=== PATIENT | female | born 1990 | race Caucasian/White ===

== ENCOUNTER 2025-09-23 01:50 | Emergency (ER) | payer BC ==
[~2025-09-23] VITALS: Ht 162.6 cm; Wt 61.0 kg
[2025-09-23 01:55] VITALS: O2SAT 97
[2025-09-23 01:59] VITALS: BP 123/75; PULSE 100; RESP 18; TEMP 36.7; O2SAT 100
[2025-09-23 05:16] LABS: CLARITY URINE CLEAR (CLEAR); COLOR URINE YELLOW (YELLOW); PH URINE 6.5 (4.5-8.0); SPECIFIC GRAVITY URINE 1.003 (1.005-1.030)
[2025-09-23 05:17] LABS: GLUCOSE URINE NEGATIVE (NEGATIVE); KETONES URINE NEGATIVE (NEGATIVE); LEUKOCYTE ESTERASE URINE NEGATIVE (NEGATIVE); NITRITE URINE NEGATIVE (NEGATIVE); OCCULT BLOOD URINE NEGATIVE (NEGATIVE); PROTEIN URINE NEGATIVE (NEGATIVE); UROBILINOGEN URINE 0.2 E.U./dL (0.2-1.0)
[2025-09-23 05:18] LABS: UCG KIT EXPIRATION DATE 04/08/2027; UCG KIT LOT# 994099; UCG SCREEN NEGATIVE
[2025-09-23 05:39] LABS: BASOPHILS % 0.9 % (0.0-2.0); EOSINOPHILS % 2.0 % (0.0-5.0); HEMATOCRIT. 39.1 % (36.0-48.0); HEMOGLOBIN. 13.3 g/dL (12.0-16.0); LYMPHOCYTES % 32.6 % (20.0-50.0); MEAN PLATELET VOLUME 9.0 fl (7.4-10.4); MONOCYTES % 8.3 % (2.0-8.0); NEUTROPHILS % 56.2 % (40.0-76.0); PLATELET 319 x1000/uL (130-400); RED BLOOD CELL COUNT 4.35 mill/uL (4.2-5.4); RED CELL DISTRIBUTION WIDTH 12.3 % (11.6-14.6)
[2025-09-23 06:03] LABS: HCG SCREEN NEGATIVE
[2025-09-23 06:04] LABS: CREATININE 0.8 mg/dL (0.6-1.0); UREA NITROGEN BLOOD 7 mg/dL (9-23)
[2025-09-23 06:05] LABS: TROPONIN I HIGH SENSITIVITY < 4 ng/L (3.0-34)
[2025-09-23 06:34] LABS: ASPARTATE AMINOTRANSFERASE 20 IU/L (<34); BILIRUBIN DIRECT 0.2 mg/dL (<=3.0); BILIRUBIN TOTAL 0.8 mg/dL (0.1-1.0); PROTEIN TOTAL 6.9 g/dL (6.0-8.3)
== END 2025-09-23 07:12 | disposition left against medical advice (07) ==
LOC: ER 01:50
DX: R07.9 Chest pain, unspecified (principal); R10.12 Left upper quadrant pain; J45.909 Unspecified asthma, uncomplicated; Z87.442 Personal history of urinary calculi
CPT/HCPCS: 36415; 71045; 74176; 80048; 80076; 81003; 81025; 84484; 84703; 85025; 85379; 99284